=== PATIENT | male | born 1960 | race Caucasian/White ===

== ENCOUNTER 2017-12-12 11:40 | Emergency (ER) | payer OTHER ==
[~2017-12-12] VITALS: Ht 170.2 cm; Wt 74.8 kg
[~2017-12-12 11:40] MED LIST: BLOOD PRESSURE; CHOLESTEROL
[2017-12-12] MEDS ORDERED: SIMVASTATIN40 MG PO (11:50)
[2017-12-12] MEDS ORDERED: NEURONTIN 300300 M1 PO (11:50)
[2017-12-12] MEDS ORDERED: HYDROCHLOROTH12.5 M1 PO (11:52)
[2017-12-12 12:57] VITALS: BP 133/92
== END 2017-12-12 12:58 | disposition home or self-care (01) ==
LOC: M.ERS 11:40
DX: S01.01XA Laceration without foreign body of scalp, initial encounter (principal); I10 Essential (primary) hypertension; E78.00 Pure hypercholesterolemia, unspecified; W11.XXXA Fall on and from ladder, initial encounter; Y93.89 Activity, other specified; Y92.89 Other specified places as the place of occurrence of the external cause; Y99.8 Other external cause status

== ENCOUNTER → 2018-07-06 | Outpatient (CLI) | payer OTHER ==
[~2018-07-06] MED LIST changes: +HYDROCHLOROTH12.5 M1 PO; +HYDROCHLOROTHIA25 M2 PO; +MOBIC7.5 MG PO; +NEURONTIN 300300 M1 PO; +SIMVASTATIN40 MG PO
--- NOTE | ~2018-07-06 | PAINCON ---
[address] [address] PAIN MANAGEMENT CONSULTATION Name: PIERRE BUITRAGO Room: [facility] LeeannSalvatore#: [id number] Admission: 07/06/18 Attend Phys: Jacob Corral MD Discharge: Date of : 56 Report #: [id number] THIS REPORT FOR: //name// CC: Jacob Acostago-Jenkins DATE OF SERVICE: 07/06/2018 CHIEF COMPLAINT: Low back pain. HISTORY OF PRESENT ILLNESS: The patient is a 57-year-old gentleman who has been referred to the pain clinic for evaluation. He describes it as a burning discomfort in the lower portion of his back. He has had back pain for greater than 8 years. Notes exercise can worsen the pain and discomfort. This pain limits his activities of daily living. He has tried physical therapy, has undergone epidural steroid injections about 6 years ago. 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 Has used gabapentin and meloxicam. Notes that the pain is worse when he climbs stairs. Not sure of anything that makes it significantly better. Describes it as continuous, steady, burning and rates it as a 3/10 at this juncture. It involves the lower portion of his back and radiates around the buttocks and in the posterior portion of his leg. He had tried gabapentin. He felt that this medication made him emotionally unstable, felt suicidal. He is no longer taking this medication. Has a history of alcoholism, last relapse was about 6 years ago. We would like to consider an epidural steroid injection at this juncture. ALLERGIES: No known drug allergies. CURRENT MEDICATIONS: Hydrochlorothiazide 25 mg, meloxicam 15 mg or 7.5 mg, simvastatin, Zocor 40 mg. PAST MEDICAL HISTORY: Chronic low back pain, history of alcohol use, last relapse 6 years ago, hypertension and hypercholesterolemia. PAST SURGICAL HISTORY: Inguinal hernia repair, 1981. Vasectomy, 1989. 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 He is working at this juncture. REVIEW OF SYSTEMS: Questionnaire, generally good health, wears glasses, frequent urination, gets up to urinate at night, back pain and walking difficulties. LABORATORY DATA: No new laboratory values are available at the time [place] [address] PAIN MANAGEMENT CONSULTATION Name: PIERRE BUITRAGO Room: [facility]#: [id number] Admission: 07/06/18 Attend Phys: Jacob Corral MD Discharge: Date of : 56 Report #: [id number] PAIN CLINIC ASSESSMENT AND PQRS: 1. History of osteoarthritis. The patient is not being treated for rheumatoid arthritis. The patient is not being treated for osteoarthritis. 2. VITAL SIGNS: Blood pressure 129/76, heart rate 60, respiratory rate 16, room air saturation 97%. Height 5 feet 7 inches, weight 147 pounds, BMI is 26. Pain intensity 08/01. 3. Fall history: The patient has not fallen in the last 3 months. 4. Blood thinner. The patient is not on a blood thinning agent. 5. Opioid therapy greater than 6 weeks. The patient is not on an opioid regimen. 6. Risk assessment tool high for opioid use. 7. Functional assessment tool. 8. Recreational drug use. The patient denies use of recreational drugs. 9. Tobacco: The patient denies use of tobacco, alcohol. The patient has not smoked or drank in the last 6 years. PHYSICAL EXAMINATION: GENERAL: The patient is a well-developed, well-nourished white male. Appears his stated age. He is alert, oriented x 3. His affect is appropriate. Speech is fluent. HEENT: Normocephalic, atraumatic. Extraocular eye muscles intact. Sclerae nonicteric. Mucous membranes are moist. NECK: Without adenopathy or JVD. HEART: Regular rate. ABDOMEN: Nontender. EXTREMITIES: Upper extremity muscle strength is judged to be 5/5 for the major muscle groups in the upper extremity. The patient is somewhat hyperreflexia +3 for the biceps bilaterally, +2 for the brachioradialis, +2 for the triceps. The patient without significant scoliosis, kyphosis or lordosis. The patient complains of some pain and discomfort in the L5-S1 dermatomal distribution on the left side. Deep tendon reflexes are +3 for the patellar reflexes bilaterally and +2 for the ankles. The patient does not have clonus. Walks with a rather stiff gait. Complains of pain and discomfort in low back area. Forward bending noted some increased pain and discomfort in the left low back area. Left and right lateral rotation were not problematic. Lumbar extension caused some increased pain down into the leg. The patient sat in the chair, leaning to the right side. IMPRESSION: 1. Lumbar radiculopathy. 2. Chronic low back pain. 3. History of alcohol use, last relapse 6 years ago. 4. Hypertension. 5. Hypercholesterolemia. RECOMMENDATIONS: We discussed treatment options with the patient. [address] [address] PAIN MANAGEMENT CONSULTATION Name: PIERRE BUITRAGO Room: [facility] CHINO Stout#: [id number] Admission: 07/06/18 Attend Phys: Jacob Corral MD Discharge: Date of : 56 Report #: [id number] benefits of an epidural steroid injection were reviewed. Possible complication of the procedure, which could include but are not limited to infection, worsening the pain, no improvement in pain, headache, nerve damage were discussed. The patient elects to proceed. PROCEDURE NOTE: The patient was taken to the examination area. He was assisted in getting on the table. A pillow was placed under his abdomen to bolster and improve positioning. Fluoroscopy using anterior, posterior as well as lateral viewing were implemented. The patient's back was sterilely prepped at the L5-S1 area on the left. A midline approach at L5-S1 was undertaken. This area was injected with 0.25% bupivacaine using a 25-gauge needle to numb it. A 17-gauge Tuohy with loss of resistance technique was used to gain access to the epidural space. Aspiration was negative. A total of 80 mg of Depo-Medrol, 40 mg of triamcinolone and 2 mL of 0.25% bupivacaine was injected. The patient tolerated the procedure well. There were no complications. He remained in the pain clinic for an appropriate amount of time. He will follow up in the future as needed. We would like to thank you for letting us participate in his care. We hope he continues to improve. A total of about 12 seconds' fluoroscopy time was used and the patient will return to the pain clinic for evaluation in the near future. By: [id number]. MD STEVE Bee
== END ==
LOC: M.PC 10:40
DX: M54.16 Radiculopathy, lumbar region (principal); M54.5 Low back pain; G89.29 Other chronic pain; I10 Essential (primary) hypertension; E78.00 Pure hypercholesterolemia, unspecified

== ENCOUNTER → 2018-09-02 | Outpatient (CLI) | payer OTHER | END | disposition home or self-care (01) | LOC: M.PC 04:47 | DX: M54.16 Radiculopathy, lumbar region (principal); Z79.899 Other long term (current) drug therapy; Z98.890 Other specified postprocedural states ==

== ENCOUNTER → 2018-11-18 | Outpatient (CLI) | payer OTHER ==
--- NOTE | 2018-11-24 14:27 | PAINCON ---
[address] [address] PAIN MANAGEMENT CONSULTATION Name: PIERRE BUITRAGO Room: [facility] LeeannSalvatore#: [id number] Admission: 11/18/18 Attend Phys: Jacob Corral MD Discharge: Date of : 56 Report #: [id number] THIS REPORT FOR: //name// CC: Jacob Cardenas-Jenkins DATE OF SERVICE: 11/18/2018 CHIEF COMPLAINT: Here for another epidural injection and pain that is radiating down into my left leg." HISTORY: The patient is a 58-year-old gentleman who has been seen in the pain clinic in the past because of lumbar radiculopathy. He underwent an epidural steroid injection in August. He noted improvement in his pain. At this juncture, he has noticed a recurrence of pain and discomfort. Rates it as a /10. Has returned today with the hopes of undergoing an epidural steroid injection to help improve his pain. He denies any new bowel or bladder dysfunction. Continues to have pain that is radiating down into his left leg, which has been more problematic over the last 10 days. Denies any new bowel or bladder dysfunction. No changes in saddle numbness. The patient has a history of alcoholism in the past. His last relapse was about 6 years ago. He has returned to the pain clinic for another epidural steroid injection today. ALLERGIES: No known drug allergies. CURRENT MEDICATIONS: Hydrochlorothiazide 25 mg, Meloxicam 7.5 mg, simvastatin 40 mg, Zocor 40 mg. PAIN CLINIC ASSESSMENT/PQRS: 1. The patient has a history of osteoarthritis. He is not being treated for rheumatoid arthritis. 2. Height 5 feet 7 inches, weight 171 pounds, BMI is 26. 3. Vital Signs: Blood pressure 127/89, heart rate is 66, respiratory rate 16, room air saturation 95%. 4. Pain intensity 4/10. 5. Fall history: The patient has not fallen since we saw him last. 6. Blood thinner. The patient is not on a blood thinning medication. 7. Hypertension. The patient is being treated for hypertension. 8. Opioids greater than 6 weeks. The patient is not on an opioid regimen. ASSESSMENT: 1. Elevated for use of opioids. 2. Functional assessment tool. 3. Recreational drug use. The patient denies use of tobacco, denies use of alcoholic beverages, has not drank in the last [place] [address] PAIN MANAGEMENT CONSULTATION Name: MINNAPIERRE Mindy Room: [facility]#: [id number] Admission: 11/18/18 Attend Phys: Jacob Corral MD Discharge: Date of : 56 Report #: [id number] PHYSICAL EXAMINATION: GENERAL: The patient is a well-developed, well-nourished white male. Appears his stated age. He is alert and oriented x 3. His affect is appropriate. Speech is fluent. HEENT: Normocephalic, atraumatic. Extraocular eye muscles intact. Sclerae nonicteric. Mucous membranes are moist. NECK: Without adenopathy or JVD. HEART: Regular rate. ABDOMEN: Nontender. Bowel sounds present. EXTREMITIES: Upper extremity muscle strength judged to be 5/5 for the major muscle groups in the upper extremity. The patient is without significant scoliosis, kyphosis or lordosis. Has pain and discomfort that is radiating down the lower portion of his back in the L5-S1 dermatomal distribution on the left. The patient walks with an antalgic gait. IMPRESSION: 1. Lumbar radiculopathy with L5-S1. 2. Chronic low back pain. 3. History of alcoholism, last relapse 6 years ago. 4. Hypertension. 5. Hypercholesterolemia. RECOMMENDATIONS: We discussed treatment options with the patient. Risks and benefits of an epidural steroid injection were again reviewed. They include but are not limited to infection, worsening pain, no improvement in pain, spinal trauma with paralysis, spinal headache and increased muscle soreness. The patient elects to proceed. PROCEDURE NOTE: The patient was taken to the procedure area. He was then assisted in getting on the examination table. His back was sterilely prepped with a Betadine solution. A 0.25% bupivacaine was infiltrated using a 25-gauge needle at the L5-S1 area on the left. This area was then infiltrated with additional bupivacaine. A 17-gauge Tuohy at the left L5-S1 area using a midline approach was undertaken. Aspiration was negative. A total of 80 mg Depo-Medrol, 40 mg triamcinolone and 2 mL of 0.25% bupivacaine was injected. The patient tolerated the procedure well. He remained in the pain clinic for an appropriate amount of time. We would like to thank you for letting us participate in her care. his care. We hope he continues to improve. <ELECTRONICALLY SIGNED> By: Jacob Corral MD 11/24/18 1427 1512 1859N. Shahid Corral MD /BELINDA
== END | disposition home or self-care (01) ==
LOC: M.PC 04:57
DX: M54.16 Radiculopathy, lumbar region (principal); G89.29 Other chronic pain; I10 Essential (primary) hypertension; E78.00 Pure hypercholesterolemia, unspecified; Z79.899 Other long term (current) drug therapy; Z98.890 Other specified postprocedural states

== ENCOUNTER 2018-12-01 18:51 | Emergency (ER) | payer OTHER ==
[~2018-12-01] VITALS: Ht 170.2 cm; Wt 74.8 kg
[2018-12-01 19:14] LABS: ABSOLUTE BASOPHILS 0.1 thou/uL (0.0-0.2); ABSOLUTE EOSINOPHILS 0.1 thou/uL (0.0-0.7); ABSOLUTE LYMPHOCYTES 2.1 thou/uL (0.8-5.3); ABSOLUTE MONOCYTES 0.7 thou/uL (0.0-1.2); ABSOLUTE NEUTROPHILS 4.8 thou/uL (1.6-8.1); EOSINOPHILS 1.5 %; HEMATOCRIT 39.5 % (42.0-52.0); HEMOGLOBIN 13.7 gm/dL (14.0-18.0); LYMPHOCYTES 26.5 %; MCH 32.8 pg (26.0-34.0); MCHC 34.7 g/dL (28.0-37.0); MCV 94.7 fL (80.0-100.0); MONOCYTES 8.7 %; MPV 8.1 fl. (7.2-11.1); NUCLEATED RBCS 0 /100WBC; PLATELET COUNT* 235 thou/uL (150-400); POLYS 62.3 %; RBC 4.17 mil/uL (4.50-6.00); RDW-CV 13.7 % (10.5-14.5); WBC 7.8 thou/uL (4.0-11.0)
[2018-12-01 19:34] LABS: APTT 26.2 Seconds (25.0-31.3)
[2018-12-01 19:43] LABS: ANION GAP 6 mmol/L (7-16); BUN 22 mg/dL (7-18); CALCIUM 8.9 mg/dL (8.5-10.1); CHLORIDE 103 mmol/L (98-107); CO2 32 mmol/L (21-32); CREATININE 0.9 mg/dL (0.6-1.3); GLUCOSE 101 mg/dL (70-99); POTASSIUM 3.5 mmol/L (3.5-5.1); SODIUM 141 mmol/L (136-145)
[2018-12-01 19:46] LABS: ALBUMIN 3.9 g/dL (3.4-5.0); ALKALINE PHOSPHATASE 63 U/L (46-116); CK-MB MASS 3.6 ng/mL (<0.5-3.6); LIPASE 475 U/L (73-393); NT-PRO BRAIN NAT PEPTIDE 15 pg/mL (<300); SGOT 25 U/L (15-37); SGPT 37 U/L (30-65); TOTAL BILIRUBIN 0.6 mg/dL (<0.1-1.0); TROPONIN-I LEVEL <0.06 ng/mL (<0.06)
[2018-12-01 20:19] VITALS: BP 147/74
--- NOTE | 2018-12-02 16:58 | EKG ---
[place] [address] ELECTROCARDIOGRAM REPORT Name: PIERRE BUITRAGO Room: [facility]#: [id number] Admission: 12/01/18 Attend Phys: Discharge: 12/01/18 Date of : 56 Report #: [id number] THIS REPORT FOR: //name// [facility] ED Test Date: 2018-12-01 Test Time: 18:54:54 Pat Name: PIERRE BUITRAGO Department: Room: Gender: Director Of Restaurant: : 1960 Requested By: Owen Pires Order Number: [id number] MD: Clarence Leigh Measurements Intervals [place] Rate: 70 P: 7 FL: 75 QRS: 18 QRSD: 108 T: 42 QT: 408 QTc: 441 Interpretive Statements Sinus rhythm Short FL interval RSR' in V1 or V2, right VCD or RVH Baseline wander in lead(s) V6 No previous ECG available for comparison Electronically Signed On 12-02-2018 16:58:37 CDT by Clarence Leigh [email or web address] <ELECTRONICALLY SIGNED> By: Clarence Leigh MD, [facility] 12/02/18 1658 53 Clarence Leigh MD, FACC /EPI
== END 2018-12-01 20:19 | disposition home or self-care (01) ==
LOC: M.ERS 18:51
PROVIDERS: Emergency Medicine
DX: R07.89 Other chest pain (principal); I10 Essential (primary) hypertension

== ENCOUNTER → 2019-01-13 | Outpatient (CLI) | payer OTHER ==
--- NOTE | 2019-01-31 11:25 | PAINCON ---
[address] [address] PAIN MANAGEMENT CONSULTATION Name: PIERRE BUITRAGO Room: [facility] Argelia#: [id number] Admission: 01/13/19 Attend Phys: Jacob Corral MD Discharge: Date of : 56 Report #: [id number] THIS REPORT FOR: //name// CC: Jacob Morataya DATE OF SERVICE: 01/13/2019 CHIEF COMPLAINT: Low back pain and would like to have another injection. HISTORY: The patient is a 58-year-old gentleman who has been seen in the pain clinic in the past because of chronic pain. He has undergone epidural steroid injections. These have proven beneficial. He has noticed a return of his pain at this juncture and rates it as a 4/10. It radiates down into his left hip and involves his thigh. He rates it as a 4/10. He continues to use nonsteroidal anti-inflammatory medication, meloxicam. He noticed progression of his pain to the point that he has become more problematic at this juncture. Previous injections in 10/2018 were beneficial. He is walking with a change in his gait because of pain in his hip. He does have a history of alcoholism in the past. His last relapse was about 6 years ago. He has returned to the pain clinic with a desire to undergo another injection to the epidural area today. ALLERGIES: No known drug allergies. CURRENT MEDICATIONS: Hydrochlorothiazide 25 mg, meloxicam 7.5 mg, simvastatin 40 mg, and Zocor 40 mg. PAIN CLINIC ASSESSMENT AND PQRS: 1. The patient does have a history of osteoarthritis. He is not being treated for rheumatoid arthritis. 2. Height 5 feet 7 inches, weight 166 pounds, BMI is 26. 3. Blood pressure 108/67, heart rate 66, respiratory rate 16, room air saturation is 96%. 4. Pain intensity 4/10. 5. Fall history: The patient has not fallen in the last 3 months. 6. Blood thinner. The patient is not on a blood thinning medication. 7. Hypertension. The patient is being treated for hypertension. 8. Opioids greater than 6 weeks. The patient is not on an opioid regimen. 9. The patient has elevated status for use of opioids. 10. Functional assessment tool. 11. Recreational drug use. The patient denies use of tobacco. 12. The patient denies use of alcoholic beverages. He has not drank in the last 6 years. PHYSICAL EXAMINATION: GENERAL: The patient is a well-developed, well-nour[place] [address] PAIN MANAGEMENT CONSULTATION Name: MINNAPIERRE Mindy Room: [facility]#: [id number] Admission: 01/13/19 Attend Phys: Jacob Corral MD Discharge: Date of : 56 Report #: [id number] his stated age. He is alert and oriented x 3. His affect is appropriate. Speech is fluent. HEENT: Normocephalic, atraumatic. Extraocular eye muscles intact. Sclerae nonicteric. Mucous membranes are moist. NECK: Without adenopathy or JVD. HEART: Regular rate. ABDOMEN: Nontender. Bowel sounds present. EXTREMITIES: Upper extremity muscle strength judged to be 5/5 for the major muscle groups in the upper extremity. The patient is without significant scoliosis, kyphosis or lordosis. He does walk with an antalgic gait. He has pain that is radiating down in the lower portion of his back in the L5-S1 dermatomal distribution involving the left leg. IMPRESSION: 1. Lumbar radiculopathy with L5-S1 involving the left side. 2. Chronic low back pain. 3. History of alcoholism, last relapse 6 years ago. 4. Hypertension. 5. Hypercholesterolemia. RECOMMENDATIONS: We discussed treatment options with the patient. The risks and benefits of an epidural steroid injection were discussed. They were possibility of infection, worsening of pain, no improvement in pain, nerve damage with paralysis and the patient elects to proceed. PROCEDURE NOTE: The patient was taken to the procedure area. He was then assisted in getting on the examination table. His back was sterilely prepped with a Betadine solution. A 0.25% bupivacaine was infiltrated. A 17-gauge Tuohy with loss of resistance technique was used to gain access at the L5-S1 area. A interlaminer approach was undertaken. A left paramedian approach was used to advance the needle. Aspiration was negative. A total of 80 mg Depo-Medrol, 40 mg triamcinolone and 2 mL of 0.25% bupivacaine was injected. The patient tolerated the procedure well. There were no complications. He remained in the pain clinic for an appropriate amount of time. Approximately 10 seconds fluoroscopy time was used. A 26 seconds fluoroscopy time was used. The patient will return to the Pain Clinic as needed. We would like to thank you for letting us participate in his care. We hope he continues to improve. <ELECTRONICALLY SIGNED> By: Jacob Corral MD 01/31/19 1125 2236 0036N. Shahid Corral MD /nt
== END | disposition home or self-care (01) ==
LOC: M.PC 02:09
DX: M54.16 Radiculopathy, lumbar region (principal); G89.29 Other chronic pain; I10 Essential (primary) hypertension; E78.00 Pure hypercholesterolemia, unspecified; Z98.890 Other specified postprocedural states; Z79.899 Other long term (current) drug therapy

== ENCOUNTER → 2019-02-23 | Outpatient (CLI) | payer OTHER | LOC: M.MRI 07:30 | DX: M51.16 Intervertebral disc disorders with radiculopathy, lumbar region (principal); M51.27 Other intervertebral disc displacement, lumbosacral region ==

== ENCOUNTER → 2020-02-28 | Outpatient (CLI) | payer OTHER | LOC: M.RAD 09:57 | PROVIDERS: ATTEND Family Medicine | DX: M25.512 Pain in left shoulder (principal) ==

== ENCOUNTER 2020-09-18 12:16 | Emergency (ER) | payer OTHER ==
[~2020-09-18] VITALS: Ht 170.2 cm; Wt 74.8 kg
[2020-09-18 12:47] LABS: ABSOLUTE EOSINOPHILS 0.1 thou/uL (0.0-0.7); ABSOLUTE LYMPHOCYTES 2.2 thou/uL (0.8-5.3); ABSOLUTE MONOCYTES 0.5 thou/uL (0.0-1.2); ABSOLUTE NEUTROPHILS 3.6 thou/uL (1.6-8.1); BASOPHILS 0.6 %; EOSINOPHILS 1.9 %; HEMATOCRIT 39.4 % (42.0-52.0); HEMOGLOBIN 13.2 gm/dL (14.0-18.0); LYMPHOCYTES 33.8 %; MCH 31.1 pg (26.0-34.0); MCHC 33.4 g/dL (28.0-37.0); MCV 93.1 fL (80.0-100.0); MONOCYTES 7.6 %; MPV 8.3 fl. (7.2-11.1); NUCLEATED RBCS 0 /100WBC; PLATELET COUNT* 235 thou/uL (150-400); POLYS 56.1 %; RBC 4.24 mil/uL (4.50-6.00); RDW-CV 14.1 % (10.5-14.5); WBC 6.5 thou/uL (4.0-11.0)
[2020-09-18 12:57] LABS: APTT 24.7 Seconds (25.0-31.3); INR 0.9; PROTIME 10.1 Seconds (9.20-11.50)
[2020-09-18 13:00] LABS: CALCIUM 9.1 mg/dL (8.5-10.1); CREATININE 0.8 mg/dL (0.6-1.3); POTASSIUM 3.3 mmol/L (3.5-5.1)
[2020-09-18 13:13] LABS: ALBUMIN 4.2 g/dL (3.4-5.0); CK-MB MASS 3.4 ng/mL (<0.5-3.6); MAGNESIUM 2.1 mg/dL (1.8-2.4); TOTAL BILIRUBIN 0.5 mg/dL (<0.1-1.0); TOTAL PROTEIN 7.5 g/dL (6.4-8.2)
[2020-09-18 14:58] VITALS: BP 130/77
--- NOTE | 2020-09-18 15:52 | EKG ---
[place] [address] ELECTROCARDIOGRAM REPORT Name: PIERRE BUITRAGO Room: [facility]#: [id number] Admission: 09/18/20 Attend Phys: Discharge: 09/18/20 Date of : 56 Date of Service: 09/18/20 1221 Report #: [id number] THIS REPORT FOR: //name// [facility] ED Test Date: 2020-09-18 Test Time: 12:21:03 Pat Name: PIERRE BUITRAGO Department: Room: Gender: [employer]: [facility] : 1960 Requested By: Andrzej Padilla Order Number: [id number] MD: Ravi Johns Measurements Intervals [place] Rate: 63 P: 9 CA: 143 QRS: 38 QRSD: 115 T: 48 QT: 425 QTc: 436 Interpretive Statements Sinus rhythm Nonspecific intraventricular conduction delay Minimal ST elevation, anterior leads Compared to ECG 12/01/2018 18:54:54 no change Electronically Signed On 09-18-2020 15:52:03 CDT by Ravi Johns [email or web address] <ELECTRONICALLY SIGNED> By: Ravi Johns MD, [facility] 09/18/20 1552 1221 1221 Ravi Johns MD, [facility] /EPI
== END 2020-09-18 15:00 | disposition home or self-care (01) ==
LOC: M.ERS 12:16
PROVIDERS: Family Medicine
DX: R07.89 Other chest pain (principal); I10 Essential (primary) hypertension; Z79.899 Other long term (current) drug therapy

== ENCOUNTER → 2020-10-17 | Outpatient (CLI) | payer OTHER ==
--- NOTE | 2020-10-17 17:19 | CARDNUC ---
[place] [address] CARDIAC NUCLEAR IMAGING REPORT Name: PIERRE BUITRAGO Room: [facility]#: [id number] Admission: 10/17/20 Attend Phys: Ravi Johns MD Discharge: Date of : 56 Date of Service: 10/17/20 1718 Report #: [id number] THIS REPORT FOR: cc: Ildefonso Mendoza Russell J. DO Liston,Clarence Logan MD [facility] ~ APPROVED REPORT Imaging Protocol: Rest Tc-99m/Stress Tc-99m 1 day Study performed: 10/17/2020 12:30:00 Indication: Chest pain Patient Location: Out-Patient Stress Tech: Nanci Harper Stress Nurse: Alona Alvares RN NM Tech:DANIELLE Gibbons Ht: 5 ft 6 in Wt: 168 lbs BSA: 1.86 m2 BMI: 27.11 Medical History Medical History: HTN, Hyperlipidemia Medications: asa 81, hctz, simvastatin Allergies: No known drug allergies Cardiac Risk Factors: Age, HTN, Hyperlipidemia Exercise History: Indeterminate Resting Data Rest SPECT myocardial perfusion imaging was performed in supine position 30 minutes following the intravenous injection of 10.8 mCi of Tc-99m Sestamibi. Time of rest injection: 1245 Date: 10/17/2020 The images were gated to evaluate regional wall motion and calculate left ventricular ejection fraction. Administration Route: IV Administration Site: Right Pharmacologic Stress Pharmacologic stress test was performed by injecting Regadenoson 0.4 mg IV push over 10-15 seconds immediately followed by the intravenous injection of 36.0 mCi of Tc-99m Sestamibi. Time of stress injection: 1430 Date: 10/17/2020 Administration Route: IV Administration Site: [place] [address] CARDIAC NUCLEAR IMAGING REPORT Name: PIERRE BUITRAGO Room: [facility] Argelia#: [id number] Admission: 10/17/20 Attend Phys: Ravi Johns MD Discharge: Date of : 56 Date of Service: 10/17/20 1718 Report #: [id number] Gated Stress SPECT was performed 40 minutes after stress injection. The images were gated to evaluate regional wall motion and calculate left ventricular ejection fraction. Prone imaging was performed. Stress Test Details Stress Test: Pharmacologic stress testing performed using 0.4 mg of regadenoson per 5 mL given IV over 10 seconds. Reason for pharmacologic stress test: physical limitation. HR Max Heart Rate (APMHR): 159 bpm Resting HR: 62 bpm Target HR (85% APMHR): 135 bpm Max HR Achieved: 91 bpm % of APMHR: 57 Recovery HR: 75 bpm BP Resting BP: 128/91 mmHg Max BP: 118/68 mmHg Recovery BP: 130/79 mmHg ECG Resting ECG: Sinus Rhythm Stress ECG: Sinus Rhythm ST Change: None Arrhythmia: None Recovery ECG: Sinus Rhythm Recovery ST Change: None Recovery Arrhythmia: None Clinical Reason for Termination: Completed protocol The patient tolerated Lexiscan infusion without significant cardiac symptoms. Nurse Comments pt uses cane Stress ECG Conclusion The baseline twelve-lead EKG shows sinus rhythm without significant ST segment or T wave abnormality. EKGs obtained during and post Lexiscan infusion show sinus rhythm with no significant ST segment or T wave changes when compared to baseline. There were no stress-[place] [address] CARDIAC NUCLEAR IMAGING REPORT Name: MINNAPIERRE A Room: [facility]#: [id number] Admission: 10/17/20 Attend Phys: Ravi Johns MD Discharge: Date of : 56 Date of Service: 10/17/20 1718 Report #: [id number] Study: Good Artifact: Mild Diaphragmatic artifact Study Data At rest, the left ventricular ejection fraction was 67%.. Post stress, the left ventricular ejection was 62%.. TID = 1.11. Perfusion Perfusion images obtained at rest in the supine position shows photopenia of the inferior wall that resolves with post stress supine and prone imaging consistent with diaphragmatic attenuation artifact. No other significant fixed or reversible defects are identified. Wall Motion Normal left ventricular wall motion. Nuclear Conclusion ECG Findings: negative for ischemia Clinical Findings: negative for ischemia Nuclear Findings: negative for ischemia Exercise Capacity: not assessed Left Ventricular Function: normal Risk Study: low Perfusion images show no defect to suggest infarct or ischemia. Left ventricular systolic function is normal on gated studies. This is a low risk study. <Conclusion> The baseline twelve-lead EKG shows sinus rhythm without significant ST segment or T wave abnormality. EKGs obtained during and post Lexiscan infusion show sinus rhythm with no significant ST segment or T wave changes when compared to baseline. There were no stress-induced arrhythmias. <ELECTRONICALLY SIGNED> By: Clarence Leigh MD, FACC 10/17/201717 17 17 Clarence Leigh MD, FACC /INF
== END ==
LOC: M.NUC 10-01 08:44
PROVIDERS: ATTEND Internal Medicine Cardiovascular Disease
DX: R07.1 Chest pain on breathing (principal); I10 Essential (primary) hypertension; E78.5 Hyperlipidemia, unspecified; Z79.899 Other long term (current) drug therapy

== ENCOUNTER 2020-12-04 08:45 | Emergency (ER) | payer OTHER ==
[~2020-12-04] VITALS: Ht 167.6 cm; Wt 77.1 kg
[2020-12-04] MEDS ORDERED: ASA81BEC PO (08:50)
[2020-12-04] MEDS ORDERED: CEPHALEXIN500 MG PO (10:44)
[2020-12-04 10:56] VITALS: BP 129/63
== END 2020-12-04 10:57 | disposition home or self-care (01) ==
LOC: M.ERS 08:45
DX: S81.012A Laceration without foreign body, left knee, initial encounter (principal); W29.8XXA Contact with other powered hand tools and household machinery, initial encounter; Y93.89 Activity, other specified; Y92.89 Other specified places as the place of occurrence of the external cause; Y99.8 Other external cause status; I10 Essential (primary) hypertension

== ENCOUNTER → 2021-06-14 | Outpatient (CLI) | payer OTHER ==
[~2021-06-14] MED LIST changes: +ASA81BEC PO; +CEPHALEXIN500 MG PO
== END ==
LOC: M.ULTRA 12:40
PROVIDERS: ATTEND Nurse Practitioner Family
DX: M79.604 Pain in right leg (principal); M79.89 Other specified soft tissue disorders